=== PATIENT | female | born 1945 | race Caucasian/White ===

== ENCOUNTER 2022-10-05 05:35 | Day surgery (SDC) | payer OTHER ==
[~2022-10-05 05:35] MED LIST: COZAAR50 MG PO; CRESTOR40 MG PO; GLUMETZA500 MG PO; SYNTHROID50 MCG PO
== END 2022-10-05 09:30 | disposition home or self-care (01) ==
LOC: CIR.AMB 05:35
PROVIDERS: ATTEND Surgery Surgery of the Hand
DX: M65.841 Other synovitis and tenosynovitis, right hand (principal); Z88.2 Allergy status to sulfonamides; Z88.6 Allergy status to analgesic agent; Z20.822 Contact with and (suspected) exposure to COVID-19; I10 Essential (primary) hypertension; E11.9 Type 2 diabetes mellitus without complications; E03.9 Hypothyroidism, unspecified

== ENCOUNTER 2023-06-25 18:28 | Emergency (ER) | payer OTHER ==
[~2023-06-25] VITALS: Ht 157.5 cm; Wt 71.2 kg
[2023-06-25] MEDS ORDERED: ZETIA10 MG (18:35)
== END 2023-06-25 21:53 | disposition home or self-care (01) ==
LOC: ER 18:28
DX: M54.50 Low back pain, unspecified (principal); Z88.2 Allergy status to sulfonamides; Z88.6 Allergy status to analgesic agent
CPT/HCPCS: 72100; 96372; 99284; J2360

== ENCOUNTER 2023-06-29 10:49 | Emergency (ER) | payer OTHER ==
[~2023-06-29] VITALS: Ht 157.5 cm; Wt 69.9 kg
[~2023-06-29 10:49] MED LIST changes: +ZETIA10 MG
[2023-06-29] MEDS ORDERED: NEURONTIN300 MG PO (15:24)
[2023-06-29] MEDS ORDERED: TYLENOL ARTHRI650 MG PO (15:24)
[2023-06-29] MEDS ORDERED: NORFLEX100MG PO (15:27)
== END 2023-06-29 16:34 | disposition home or self-care (01) ==
LOC: ER 10:49
DX: S33.5XXA Sprain of ligaments of lumbar spine, initial encounter (principal); Z88.2 Allergy status to sulfonamides; Z88.6 Allergy status to analgesic agent; E11.9 Type 2 diabetes mellitus without complications; Z79.84 Long term (current) use of oral hypoglycemic drugs; I10 Essential (primary) hypertension; D69.6 Thrombocytopenia, unspecified
CPT/HCPCS: 96372; 99284; J2360